=== PATIENT | male | born 1955 | race Caucasian/White ===

== ENCOUNTER 2017-01-28 12:31 | Emergency (ER) | payer OTHER ==
[2017-01-28 12:40] VITALS: TEMP 98.4
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
[2017-01-28] MEDS ORDERED: KETOROLAC TROMETHAMINE INJ 30 MG/ML VIAL IM ONE (13:34)
[2017-01-28 13:57] VITALS: BP 153/95; O2SAT 95
== END 2017-01-28 13:57 | disposition home or self-care (01) ==
LOC: ER 12:31
DX: S52.602A Unspecified fracture of lower end of left ulna, initial encounter for closed fracture (principal); Z87.891 Personal history of nicotine dependence; W55.82XA Struck by other mammals, initial encounter; Y92.9 Unspecified place or not applicable
CPT/HCPCS: 73090; J1885

== ENCOUNTER → 2017-04-29 | Outpatient (CLI) | payer OTHER | END | disposition home or self-care (01) | LOC: GMAM 10:24 | PROVIDERS: ATTEND Family Medicine | DX: Z12.5 Encounter for screening for malignant neoplasm of prostate (principal) ==

== ENCOUNTER 2018-08-14 14:30 | Emergency (ER) | payer MEDICARE, OTHER ==
[2018-08-14] MEDS ORDERED: PROCHLORPERAZINE INJ 10 MG/2 ML VIAL IV ONE (14:51)
[2018-08-14] MEDS ORDERED: MORPHINE SULFATE INJ 10 MG/ML VIAL IV ONE (14:51)
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
--- NOTE | 2018-08-14 15:55 | RAD ---
EXAM DESCRIPTION: Fingers,Right CLINICAL HISTORY: 63 years Male, R thumb injury, pain COMPARISON: None. TECHNIQUE: 3 views of the right thumb obtained. FINDINGS: The visualized bones appear well mineralized. No acute fracture or dislocation. Soft tissue laceration along the dorsal aspect of distal phalanx of the thumb. No radiopaque foreign body identified. IMPRESSION: 1. No acute fracture or dislocation. 2. Soft tissue laceration along the dorsal aspect of distal phalanx of the thumb. Electronically signed by: Marciano Jarquin MD 08/14/2018 3:52 PM [facility]
[2018-08-14] MEDS ORDERED: NEOMYCIN-BACITRACIN-POLYMYXIN 0.9 GM UD TOP ONE (16:17)
[2018-08-14 16:51] VITALS: O2SAT 95
[2018-08-14 16:53] VITALS: BP 138/89
[2018-08-14 16:55] VITALS: TEMP 98.2
== END 2018-08-14 16:31 | disposition home or self-care (01) ==
LOC: ER 14:30
DX: S67.01XA Crushing injury of right thumb, initial encounter (principal); S61.111A Laceration without foreign body of right thumb with damage to nail, initial encounter; Z87.891 Personal history of nicotine dependence; W23.1XXA Caught, crushed, jammed, or pinched between stationary objects, initial encounter; Y99.0 Civilian activity done for income or pay; Y92.69 Other specified industrial and construction area as the place of occurrence of the external cause
CPT/HCPCS: 73140; J0780; J2270

== ENCOUNTER → 2019-04-28 | Outpatient (CLI) | payer MEDICARE, OTHER ==
--- NOTE | 2019-04-28 13:39 | MRI ---
Study: MRI of the Right Knee. Indication: PAIN IN RIGHT KNEE Technique: Multiplanar, multi sequence MRI of the right knee was obtained without intravenous contrast. Comparison: None. Findings: Mild mucoid degeneration ACL. PCL intact. MCL and lateral collateral ligament complex intact. Degenerative signal posterior root attachment medial meniscus without well-defined tear. Body extruded by 2 mm. Scattered degenerative signal changes lateral meniscus without tear. Areas of grade 2 and 3 chondral thinning and surface irregularity of the lateral knee compartments and most pronounced at the central weightbearing aspects of the lateral tibial plateau. Tendinosis quadriceps tendon insertion with low-grade interstitial fissuring. Patellar tendon intact. Patella normally located. Patchy grade 2/3 chondrosis of the midline aspects of the patellofemoral compartment. Moderate size knee effusion. No acute fracture. Impression: Mild mucoid degeneration ACL without acute tear. Degenerative signal change medial meniscus and lateral meniscus and most pronounced at the posterior root attachment medial meniscus but without well-defined tear. Tricompartmental areas of grade 2 and 3 chondral loss. Moderate size knee effusion. Tendinosis quadriceps tendon insertion with low-grade interstitial fissuring. Electronically signed by: Carlos Sarkar MD 04/28/2019 1:38 PM [employer]
== END ==
LOC: MRI 11:00
PROVIDERS: ATTEND Family Medicine
DX: M23.8X1 Other internal derangements of right knee (principal); M94.8X6 Other specified disorders of cartilage, lower leg; M25.461 Effusion, right knee; M76.891 Other specified enthesopathies of right lower limb, excluding foot

== ENCOUNTER 2019-05-11 05:28 | Day surgery (SDC) | payer MEDICARE, OTHER ==
--- NOTE | 2019-05-03 13:50 | RAD ---
EXAM DESCRIPTION: Chest,2 Views CLINICAL HISTORY: 64 years Male, pre op COMPARISON: None available. TECHNIQUE: PA and lateral radiographs of the chest were obtained. FINDINGS: Trachea is midline.The cardiomediastinal silhouette is normal in size. The pulmonary vasculature is within normal limits. Elevation of the right hemidiaphragm. No acute consolidation.No evidence of pleural effusions.No evidence of pneumothorax. IMPRESSION: No acute cardiopulmonary process. Electronically signed by: Mariaelena Banegas MD 05/03/2019 1:48 PM [facility]
[2019-05-11] MEDS ORDERED: LACTATED RINGERS 1,000 ML ONE (06:58)
[2019-05-11] MEDS ORDERED: ceFAZolin SODIUM 1 GM VIAL ONE (06:58)
[2019-05-11] MEDS ORDERED: SODIUM CHL 0.9% 100ML MINI-BAG 100 ML IVPB ONE (06:58)
[2019-05-11] MEDS ORDERED: BUPIVACAINE 0.25% W/EPI 50 ML VIAL INJ ONE (07:33)
[2019-05-11] MEDS ORDERED: MIDAZOLAM INJ 2 MG/2 ML VIAL ONE (07:59)
[2019-05-11] MEDS ORDERED: HYDROmorphone HCL INJ 2 MG/ML VIAL ONE (07:59)
[2019-05-11] MEDS ORDERED: KETAMINE HCL 100 MG/ML VIAL ONE (07:59)
[2019-05-11] MEDS ORDERED: LIDOCAINE 1% 10 ML VIAL INJ ONE (10:00)
[2019-05-11] MEDS ORDERED: raNITIdine HCL INJ 25 MG/ML VIAL IV ONE (10:00)
[2019-05-11] MEDS ORDERED: METOCLOPRAMIDE HCL INJ 10 MG/2 ML VIAL IV ONE (10:00)
[2019-05-11] MEDS ORDERED: MAGNESIUM SULFATE INJ 1 GM/2 ML VIAL IVPB ONE (10:00)
[2019-05-11] MEDS ORDERED: ePHEDrine SULF 50 MG/ML IV ONE (10:00)
[2019-05-11] MEDS ORDERED: PROPOFOL 200 MG/20 ML VIAL IV ONE (10:00)
[2019-05-11] MEDS ORDERED: DEXAMETHASONE INJ 10 MG/ML VIAL IV ONE (10:00)
[2019-05-11] MEDS ORDERED: LACTATED RINGERS 1,000 ML IVS ONE (10:21)
--- NOTE | 2019-05-11 10:35 | OP ---
DATE OF PROCEDURE: 05/11/19 PREOPERATIVE DIAGNOSIS: 1. Large symptomatic right inguinal hernia. 2. Small asymptomatic left inguinal hernia. POSTOPERATIVE DIAGNOSIS: 1. Large symptomatic right inguinal hernia. 2. Small asymptomatic left inguinal hernia. PROCEDURE: 1. Right inguinal hernia repair. SURGEON: Blake Pascal MD. SENIOR SUSTAINABILITY ADVISOR: None. ANESTHESIA: Local infiltration of 0.25% Marcaine with epinephrine and general laryngeal mask anesthesia. INDICATION: The patient is a 64-year-old male with a large reducible hernia that has been present for quite some time. 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 The patient was brought to the Surgical Suite today for hernia repair after the risks, benefits and alternatives to the procedure were discussed and accepted. FINDINGS: Large direct inguinal with no sliding component. No indirect hernia was identified. The tissues of the floor of the canal were quite dissipated. PROCEDURE: After adequate anesthesia was obtained, the patient was placed in the supine position with the head of the bed slightly elevated. He was prepped and draped in the usual sterile manner. At this point, a surgical time-out was taken. An oblique incision was performed in the right groin, first with local infiltration of anesthesia, then with a sharp knife. Dissection was carried down through the skin and subcutaneous tissue to the external oblique fascia using electrocautery and blunt dissection. The self-retaining retractor was placed. At this time, the external oblique fascia was then opened in the direction of the fibers through the external inguinal ring. It was dissected free from the cord and from the floor of the canal and self-retaining retractor was placed at this level. The cord was then dissected free from the floor of the canal and using blunt dissection and electrocautery, dissected free from the cord. The cord was then explored with no indirect hernia sac identified. At this point, the direct hernia was reduced below the floor of the canal. A Surgimesh patch was then introduced under the floor of the canal and sutured in place circumferentially with interrupted 2-0 Vicryl sutures. When this was done, the wound was irrigated. Hemostasis was noted to be adequate. The Surgimesh patch was then sutured around the cord in the usual manner, again, with interrupted 2-0 Vicryl sutures. When this was done, again, the wound was irrigated with saline. Hemostasis was noted to be adequate. The external oblique fascia was then closed with running 3-0 Vicryl suture. The cord and subcutaneous tissue around the incision were infiltrated with local anesthesia. The Lalo's fascia was approximated with interrupted 3-0 Chromic suture. Skin edges were approximated with skin stapler. Sterile pressure dressing was applied. The patient was awakened and taken to the Recovery Room in good and stable condition. Estimated blood loss was less than 50 mL. All sponge, needle and instrument counts were correct. #[id number] [facility]
[2019-05-11 12:00] VITALS: O2SAT 95
[2019-05-12 11:21] VITALS: TEMP 97.6
[2019-05-12 11:22] VITALS: BP 143/93
== END 2019-05-11 13:25 | disposition home or self-care (01) ==
LOC: AMB 05:28
PROVIDERS: ATTEND Surgery
DX: K40.20 Bilateral inguinal hernia, without obstruction or gangrene, not specified as recurrent (principal); F32.9 Major depressive disorder, single episode, unspecified; R73.9 Hyperglycemia, unspecified; Z79.899 Other long term (current) drug therapy
CPT/HCPCS: 00830; 36415; 49505; 71046; 80053; 81001; 85025; 93005; C1781; J0690; J1100; J1170; J2250; J2765; J2780; J3475; J3490; J7050; J7120

== ENCOUNTER 2019-10-08 12:44 | Emergency (ER) | payer MEDICARE, OTHER ==
--- NOTE | 2019-10-08 12:55 | ED.PDOC ---
History of Present Illness - General Time Seen by Provider: 10/08/19 12:52 - History of Present Illness Initial Comments: 64 y/o male in his usual state of health came from his doctor's office for swelling and pain to RLE. He denies injury, unusual activities, long car trips, or plane travel. He is not on blood thinners and has no hx of clotting disorders. Allergies/Adverse Reactions: Allergies NO KNOWN ALLERGY Allergy (Verified 10/08/19 13:01) Home Medications: Ambulatory Orders Citalopram Hydrobromide [Celexa] 40 mg PO DAILY 01/28/17 Review of Systems - Review of Systems Constitutional: States: no symptoms reported EENTM: States: no symptoms reported Respiratory: States: no symptoms reported Cardiology: States: no symptoms reported Gastrointestinal/Abdominal: States: no symptoms reported Musculoskeletal: States: no symptoms reported, muscle pain Skin: States: no symptoms reported Neurological: States: no symptoms reported Hematologic/Lymphatic: States: no symptoms reported Past Medical History (General) - Patient Medical History Hx Stroke: No Hx Congestive Heart Failure: No Hx Diabetes: No Hx MRSA: No - Vaccination History Hx Tetanus, Diphtheria Vaccination: Yes - 2014 Hx Influenza Vaccination: No Hx Pneumococcal Vaccination: Yes - Social History Hx Tobacco Use: Yes Hx Alcohol Use: Yes - Social Hx Physical Abuse: No Hx Emotional Abuse: No Family Medical History - Family History Father Family History: Unknown Living Status: Unknown Physical Exam - Physical Exam General Appearance: Alert, No apparent distress Eyes, Ears, Nose, Throat: normal ENT inspection Neck: full range of motion, supple, normal inspection Cardiovascular/Respiratory: regular rate, rhythm, no M/R/G, normal peripheral pulses, normal breath sounds, no respiratory distress Gastrointestinal/Abdominal: non-tender, no organomegaly Thigh/Hip: normal inspection, non-tender, no evidence of injury, normal ROM Leg: normal ROM, pain, swelling - R leg only Ankle: normal inspection, non-tender, no evidence of injury, normal ROM Foot: normal inspection, non-tender, normal ROM Mental Status: alert, oriented x 3 Skin: normal color Departure - Departure Clinical Impression: Muscle ache of extremity Disposition: Discharge to Home or Self Care Condition: Good Departure Forms: ED Discharge - Pt. Copy, Patient Portal Self Enrollment Referrals: Chuckie Nunez MD [Primary Care Provider] - 1-2 Weeks Home Medications: Ambulatory Orders Citalopram Hydrobromide [Celexa] 40 mg PO DAILY 01/28/17
[2019-10-08 13:01] VITALS: TEMP 98.3
--- NOTE | 2019-10-08 13:50 | US ---
PROVIDED CLINICAL HISTORY/REASON FOR EXAM: DVT COMPARISON STUDY: None available. TECHNIQUE: Venous duplex examination using B-mode, color flow and spectral Doppler was performed. FINDINGS: Right lower extremity grayscale and Doppler venous ultrasound demonstrates normal luminal compressibility and color flow without evidence of intraluminal thrombus of the common femoral vein, femoral vein, and popliteal vein.. The visualized calf veins are unremarkable. IMPRESSION: No evidence of DVT within venous structures of the right lower extremity. Electronically signed by: Kelvin Mercedes MD 10/08/2019 1:49 PM CDT
[2019-10-08 14:24] VITALS: BP 143/87; O2SAT 96
== END 2019-10-08 14:24 | disposition home or self-care (01) ==
LOC: ER 12:44
DX: M79.18 Myalgia, other site (principal); M79.89 Other specified soft tissue disorders; M79.661 Pain in right lower leg; F17.200 Nicotine dependence, unspecified, uncomplicated

== ENCOUNTER → 2020-04-18 | Outpatient (CLI) | payer MEDICARE, OTHER | LOC: GMAM 10:34 | PROVIDERS: ATTEND Family Medicine | DX: R53.83 Other fatigue (principal); Z12.5 Encounter for screening for malignant neoplasm of prostate; E55.9 Vitamin D deficiency, unspecified; Z13.220 Encounter for screening for lipoid disorders; R73.09 Other abnormal glucose | CPT/HCPCS: 82306; 84439; 84443; G0103 ==